=== PATIENT | male | born 1935 | race Caucasian/White ===

== ENCOUNTER → 2016-09-17 | Outpatient (CLI) | payer MEDICARE, BC | LOC: MW.CHUR 08:33 | PROVIDERS: ATTEND Urology | DX: R97.20 Elevated prostate specific antigen [PSA] (principal); R35.0 Frequency of micturition | CPT/HCPCS: 36415; 84153; G0463 ==

== ENCOUNTER 2018-06-06 11:54 | Emergency (ER) | payer MEDICARE, BC ==
[2018-06-06] MEDS ORDERED: Aspirin 81 MG Tab.Chew PO ONE (12:06)
[2018-06-06] MEDS ORDERED: Sodium Chloride 0.9% 10 ML Syringe FLUSH PRN (12:06)
[2018-06-06] MEDS ORDERED: Sodium Chloride 0.9% 2.5 ML Syringe FLUSH PRN (12:06)
--- NOTE | 2018-06-06 12:10 | EDM.PDOC ---
ED HPI GENERAL MEDICAL PROBLEM - General Chief Complaint: Chest Pain Stated Complaint: CHEST PAIN Time Seen by Provider: 06/06/18 12:01 - History of Present Illness INITIAL COMMENTS - FREE TEXT/NARRATIVE: HISTORY AND PHYSICAL: History of present illness: The patient is an 83-year-old male with no significant past medical history and no cardiac history who presents with 2 episodes of chest pain. The first occurred on Wednesday, yesterday, while he was preparing to do ice fishing. He says it was midsternal and it did not radiate and it felt like heartburn and it lasted 1 hour but went away so he continued to do his fishing. The chest pain returned today while he was shoveling snow and he again describes it as midsternal with some slight radiation to the left side of his neck and a burning -like sensation. He rates it as a 5/10. He took 2 baby aspirin prior to coming here but no other medications other than Tums. He says he has never had heartburn or cardiac problems. He has no abdominal pain no lightheadedness no dizziness and no shortness of breath. He says he had a stress test many years ago that was normal but he has not had any medical problems of late. He eats and drinks normally and has no leg pain or swelling. Review of systems: As per history of present illness and below otherwise all systems reviewed and negative. Past medical history: As per history of present illness and as reviewed below otherwise noncontributory. Surgical history: As per history of present illness and as reviewed below otherwise noncontributory. Social history: No reported history of drug or alcohol abuse. Family history: As per history of present illness and as reviewed below otherwise noncontributory. Physical exam: General: Well-developed well-nourished man who is mildly overweight and nontoxic. Vital signs are noted by me HEENT: Atraumatic, normocephalic, negative for conjunctival pallor or scleral icterus, mucous membranes moist, throat clear, neck supple, nontender, trachea midline. Lungs: Clear to auscultation, breath sounds equal bilaterally, chest nontender. Heart: S1S2, regular rate and rhythm no overt murmurs Abdomen: Soft, nondistended, nontender. Negative for masses or hepatosplenomegaly. NABS Pelvis: Stable nontender. Genitourinary: Deferred. Rectal: Deferred. Extremities: Atraumatic, negative for cords or calf pain. Neurovascular unremarkable. No pedal edema or leg asymmetry Neuro: Awake, alert, oriented. Cranial nerves II through XII unremarkable. Cerebellum unremarkable. Motor and sensory unremarkable throughout. Exam nonfocal. Diagnostics: EKG 2 CBC CMP INR troponin lipase H. pylori chest x-ray Therapeutics: IV O2 monitor, 2 baby aspirin as the patient took 2 prior to coming to the ER, nitroglycerin sublingual morphine please see below addendum for more therapeutics After 3 sublingual nitros the patient has had no relief of his chest discomfort and says it still is a 5/10. We will try a dose of morphine and repeat the EKG. When I personally went into see the patient he says that the pain is worsening and is now a 7/10 and he looks like he is in more distress. We are currently repeating EKG and I discussed with him that as his pain is not improving he will likely need to be transferred to [facility] and [place] for more Cardiologic care. He states understanding and is at bedside. Repeat EKG now stones ST segment elevation in the inferior leads with subtle reciprocal changes. I've contacted [facility] in [place] and discussed the case with Dr. August in the ER at 12:43 PM. I've also discussed the case with the vice president of advertising insulation mechanic Dr. Mendoza at 12:45 PM he says that that if flight team is available and he can be immediately transported he would like to not to give TNKase due to the patient's age and the risk factors involved. I'm currently in contact with the flight teams to see what the delays might be and will recontact him. Patient and at bedside are aware of what is occurring and the care plan that is in place. I will give him Plavix by mouth and heparin per protocol as well as some fentanyl for pain. IV fluids are on at a rate of 83 mL per hour to prevent any hypotension as episodes. I will not beta amy in light of the fact that he is an inferior wall OK. Flight team has now contacted us and will be here in 10 minutes and I have recontacted Dr. Mendoza at 12:56 PM. He would like me to not give thrombolytics and just hang a low dose IV nitro drip to help with vasospasm. We will continue to monitor this patient until transfer via flight team. We will forward all testing results to the receiving hospital as all the labs have not come back at the time of this dictation and we will also follow with a chest x-ray. critical care time excluding procedures:35min Impression: Evolving chest pain, inferior STEMI OK Definitive disposition and diagnosis as appropriate pending reevaluation and review of above. left chest Pain Score (Numeric/FACES): 4 - Related Data Allergies Allergy/AdvReac Type Severity Reaction Status Date / Time No Known Allergies Allergy Verified 06/06/18 12:00 Home Meds: Home Meds . [No Known Home Meds] 10/06/14 [History] Aspirin 81 mg PO DAILY 06/06/18 [History] ED ROS GENERAL - Review of Systems Review Of Systems: ROS reveals no pertinent complaints other than HPI. ED EXAM, GENERAL - Physical Exam Exam: See Below (See dictation) Course - Vital Signs Last Recorded V/S: Last Vital Signs Temp 35.8 C 06/06/18 12:01 Pulse 71 06/06/18 12:33 Resp 18 06/06/18 12:33 BP 128/77 06/06/18 12:33 Pulse Ox 97 06/06/18 12:33 - Orders/Labs/Meds Orders: Active Orders 24 hr Category Date Time Status Cardiac Monitoring [RC] . DIRECTED Care 06/06/18 12:06 Active EKG Documentation Completion [RC] STAT Care 06/06/18 12:06 Active EKG Documentation Completion [RC] STAT Care 06/06/18 12:34 Active Oxygen Therapy, ED [RC] ASDIRECTED Care 06/06/18 12:06 Active Pulse Oximetry [RC] ASDIRECTED Care 06/06/18 12:06 Active Chest 1V Frontal [CR] Stat Exams 06/06/18 12:06 Taken COMPREHENSIVE METABOLIC PN,CMP [CHEM] Stat Lab 06/06/18 12:03 Received HELICOBACTER PYLORI AB IGG [CHEM] Stat Lab 06/06/18 12:03 Received LIPASE [CHEM] Stat Lab 06/06/18 12:03 Received TROPONIN I [CHEM] Stat Lab 06/06/18 12:03 Received Heparin Sod,Pork In 0.45% Nacl [Heparin-1/2Ns 25,000 Med 06/06/18 12:53 Active Units/500] 25,000 unit in 500 ml IV NOW Sodium Chloride 0.9% [Normal Saline] 1,000 ml Med 06/06/18 12:15 Active IV ASDIRECTED Sodium Chloride 0.9% [Saline Flush] Med 06/06/18 12:06 Active 10 ml FLUSH ASDIRECTED PRN Sodium Chloride 0.9% [Saline Flush] Med 06/06/18 12:06 Active 2.5 ml FLUSH ASDIRECTED PRN fentaNYL [Sublimaze] Med 06/06/18 12:55 Ordered 25 mcg IVPUSH Q5M PRN Saline Lock Insert [OM.PC] Stat Oth 06/06/18 12:06 Ordered Medication Orders Sodium Chloride (Normal Saline) 1,000 mls @ 50 mls/hr IV ASDIRECTED EDE Last Admin: 06/06/18 12:17 Dose: 50 mls/hr Heparin Sodium/Sodium Chloride (Heparin-1/2ns 25,000 Units/500) 25,000 unit in 500 mls @ 18.507 mls/hr IV NOW STA; Protocol Stop: 06/07/18 15:53 Sodium Chloride (Saline Flush) 10 ml FLUSH ASDIRECTED PRN PRN Reason: Keep Vein Open Sodium Chloride (Saline Flush) 2.5 ml FLUSH ASDIRECTED PRN PRN Reason: Keep Vein Open Labs: Laboratory Tests 06/06/18 06/06/18 Range/Units 12:03 12:03 WBC 9.52 (4.0-11.0) K/uL RBC 4.66 (4.50-5.90) M/uL Hgb 14.2 (13.0-17.0) g/dL Hct 41.9 (38.0-50.0) % MCV 89.9 (80.0-98.0) fL MCH 30.5 (27.0-32.0) pg MCHC 33.9 (31.0-37.0) g/dL RDW Std Deviation 40.9 (28.0-62.0) fl RDW Coeff of Tracey 13 (11.0-15.0) % Plt Count 229 (150-400) K/uL MPV 10.50 (7.40-12.00) fL Neut % (Auto) 71.3 (48.0-80.0) % Lymph % (Auto) 21.4 (16.0-40.0) % Hawkins % (Auto) 5.6 (0.0-15.0) % Eos % (Auto) 1.5 (0.0-7.0) % Baso % (Auto) 0.2 (0.0-1.5) % Neut # (Auto) 6.8 H (1.4-5.7) K/uL Lymph # (Auto) 2.0 (0.6-2.4) K/uL Hawkins # (Auto) 0.5 (0.0-0.8) K/uL Eos # (Auto) 0.1 (0.0-0.7) K/uL Baso # (Auto) 0.0 (0.0-0.1) K/uL Nucleated RBC % 0.0 /100WBC Nucleated RBCs # 0 K/uL INR 1.02 Meds: Medications Generic Name Dose Route Start Last Admin Trade Name Freq PRN Reason Stop Dose Admin Sodium Chloride 1,000 mls @ 50 mls/hr 06/06/18 12:15 06/06/18 12:17 Normal Saline IV 50 mls/hr ASDIRECTED EDE Administration Heparin Sodium/Sodium Chloride 25,000 unit in 500 mls @ 18.507 mls/hr 12:53 Heparin-1/2ns 25,000 Units/500 IV 06/07/18 15:53 NOW STA Protocol 12 UNITS/KG/HR Sodium Chloride 10 ml 06/06/18 12:06 Saline Flush FLUSH ASDIRECTED PRN Keep Vein Open Sodium Chloride 2.5 ml 06/06/18 12:06 Saline Flush FLUSH ASDIRECTED PRN Keep Vein Open Discontinued Medications Generic Name Dose Route Start Last Admin Trade Name Freq PRN Reason Stop Dose Admin Aspirin 162 mg 06/06/18 12:06 06/06/18 12:12 Aspirin PO 06/06/18 12:07 162 mg ONETIME ONE Administration Clopidogrel Bisulfate 600 mg 06/06/18 12:50 Plavix PO 06/06/18 12:51 ONETIME ONE Heparin Sodium (Porcine) 4,000 units 06/06/18 12:52 Heparin Sodium IVPUSH 06/06/18 12:53 NOW STA Morphine Sulfate 2 mg 06/06/18 12:34 06/06/18 12:39 Morphine IVPUSH 06/06/18 12:35 2 mg ONETIME ONE Administration Nitroglycerin 0.4 mg 06/06/18 12:06 06/06/18 12:27 Nitrostat SL 0.4 mg Q5M PRN Administration Chest Pain Ondansetron HCl 4 mg 06/06/18 12:42 06/06/18 12:45 Zofran IVPUSH 06/06/18 12:43 4 mg ONETIME ONE Administration Ondansetron HCl Confirm 06/06/18 12:43 Zofran Administered 06/06/18 12:44 Dose 4 mg .ROUTE .STK-MED ONE Departure - Departure Time of Disposition: 12:59 Disposition: DC/Tfer to Acute Hospital 02 Condition: Good Clinical Impression: Acute ST elevation myocardial infarction (STEMI) Qualifiers: Involved coronary artery: unspecified coronary artery Qualified Code(s): I21.3 - ST elevation (STEMI) myocardial infarction of unspecified site - Discharge Information Referrals: PCP,None [Primary Care Provider] - Forms: ED Department Discharge - My Orders Last 24 Hours: My Active Orders 06/06/18 12:03 COMPREHENSIVE METABOLIC PN,CMP [CHEM] Stat HELICOBACTER PYLORI AB IGG [CHEM] Stat LIPASE [CHEM] Stat TROPONIN I [CHEM] Stat 06/06/18 12:06 Cardiac Monitoring [RC] . DIRECTED EKG Documentation Completion [RC] STAT Oxygen Therapy, ED [RC] ASDIRECTED Pulse Oximetry [RC] ASDIRECTED Chest 1V Frontal [CR] Stat Sodium Chloride 0.9% [Saline Flush] 10 ml FLUSH ASDIRECTED PRN Sodium Chloride 0.9% [Saline Flush] 2.5 ml FLUSH ASDIRECTED PRN Saline Lock Insert [OM.PC] Stat 06/06/18 12:15 Sodium Chloride 0.9% [Normal Saline] 1,000 ml IV ASDIRECTED 06/06/18 12:34 EKG Documentation Completion [RC] STAT 06/06/18 12:53 Heparin Sod,Pork In 0.45% Nacl [Heparin-1/2Ns 25,000 Units/500] 25,000 unit in 500 ml IV NOW 06/06/18 12:55 fentaNYL [Sublimaze] 25 mcg IVPUSH Q5M PRN - Assessment/Plan Last 24 Hours: My Active Orders 06/06/18 12:03 COMPREHENSIVE METABOLIC PN,CMP [CHEM] Stat HELICOBACTER PYLORI AB IGG [CHEM] Stat LIPASE [CHEM] Stat TROPONIN I [CHEM] Stat 06/06/18 12:06 Cardiac Monitoring [RC] . DIRECTED EKG Documentation Completion [RC] STAT Oxygen Therapy, ED [RC] ASDIRECTED Pulse Oximetry [RC] ASDIRECTED Chest 1V Frontal [CR] Stat Sodium Chloride 0.9% [Saline Flush] 10 ml FLUSH ASDIRECTED PRN Sodium Chloride 0.9% [Saline Flush] 2.5 ml FLUSH ASDIRECTED PRN Saline Lock Insert [OM.PC] Stat 06/06/18 12:15 Sodium Chloride 0.9% [Normal Saline] 1,000 ml IV ASDIRECTED 06/06/18 12:34 EKG Documentation Completion [RC] STAT 06/06/18 12:53 Heparin Sod,Pork In 0.45% Nacl [Heparin-1/2Ns 25,000 Units/500] 25,000 unit in 500 ml IV NOW 06/06/18 12:55 fentaNYL [Sublimaze] 25 mcg IVPUSH Q5M PRN
[2018-06-06] MEDS: Nitroglycerin 0.4 MG Tab.SL SL PRN ×3 (12:13→12:27)
[2018-06-06] MEDS ORDERED: Sodium Chloride 0.9% 1,000 ML IV SCH (12:15)
[2018-06-06] MEDS ORDERED: Morphine 2 MG/ML Syringe IVPUSH ONE (12:34)
[2018-06-06] MEDS ORDERED: Ondansetron 4 MG/2 ML SDV IVPUSH ONE (12:42)
[2018-06-06] MEDS ORDERED: Ondansetron 4 MG/2 ML SDV ONE (12:43)
[2018-06-06] MEDS ORDERED: Clopidogrel 75 MG Tab PO ONE (12:50)
[2018-06-06] MEDS ORDERED: Heparin Sodium 5,000 Units/ML Vial IVPUSH STA (12:52)
[2018-06-06] MEDS ORDERED: Heparin Sod,Pork In 0.45% Nacl 25,000 UNIT/500 ML IV.SOLN IV STA (12:53)
[2018-06-06] MEDS ORDERED: fentaNYL 100 MCG/2 ML SDV ONE (12:54)
[2018-06-06] MEDS ORDERED: fentaNYL 100 MCG/2 ML SDV IVPUSH PRN (12:55)
[2018-06-06] MEDS ORDERED: Nitroglycerin/D5W 25 MG/250 ML BOTTLE ONE (12:57)
--- NOTE | 2018-06-06 12:59 | CR ---
INDICATION: Chest pain and shortness of breath TECHNIQUE: Chest 1 views COMPARISON: 01/01/2009 FINDINGS: Cardiovascular and mediastinum: Heart size and vasculature are normal in caliber and appearance. Lungs and pleural spaces: Lungs are clear. No sign of infiltrate or mass. No sign of pleural effusion. No pneumothorax. Bones and soft tissues: No significant findings. IMPRESSION: No acute findings and no significant changes from the prior exam. Dictated by Chris Garcia MD @ Jun 06 2018 12:57PM Signed by Dr. Chris Garcia @ Jun 06 2018 12:58PM
[2018-06-06] MEDS ORDERED: Nitroglycerin/D5W 25 MG/250 ML BOTTLE IV SCH (13:00)
[2018-06-06] MEDS ORDERED: Pantoprazole 40 MG Vial IVPUSH ONE (13:01)
[2018-06-06 14:29] VITALS: BP 128/77
== END 2018-06-06 13:37 ==
LOC: MW.ED 11:54
DX: I21.19 ST elevation (STEMI) myocardial infarction involving other coronary artery of inferior wall (principal)
CPT/HCPCS: 36415; 71045; 80053; 83690; 84484; 85025; 85610; 86677; 93005; 96361; 96365; 96375; 99285; A9270; C9113; J1644; J2270; J2405; J3010; J3490; J7040; 99291

== ENCOUNTER 2018-06-20 09:45 | Emergency (ER) | payer MEDICARE, BC ==
[2018-06-20] MEDS ORDERED: Enalaprilat 1.25 MG/ML SDV IVPUSH ONE (09:58)
[2018-06-20] MEDS ORDERED: Sodium Chloride 0.9% 500 ML IV SCH (10:00)
--- NOTE | 2018-06-20 10:00 | EDM.PDOC ---
ED HPI GENERAL MEDICAL PROBLEM - General Chief Complaint: Cardiovascular Problem Stated Complaint: HIGH BLOOD PRESSURE Time Seen by Provider: 06/20/18 09:58 Source of Information: Reports: Patient - History of Present Illness INITIAL COMMENTS - FREE TEXT/NARRATIVE: HISTORY AND PHYSICAL: History of present illness: [Patient presents post STEMI apparently was seen last week and sent out for cardiac catheter in mind that however ended up with a two-vessel bypass has no chest pain today but has had some elevated blood pressure readings and his screed person had recommended he come in for a check He also has diabetes on insulin and has just completed prednisone today as glucoses up and area to the surgery and prednisone No fever nausea vomiting chills sweats no chest pain shortness breath no diaphoresis no headache dizziness or palpitation no bowel or urine symptoms patient is otherwise asymptomatic ] Review of systems: As per history of present illness and below otherwise all systems reviewed and negative. Past medical history: As per history of present illness and as reviewed below otherwise noncontributory. Surgical history: As per history of present illness and as reviewed below otherwise noncontributory. Social history: No reported history of drug or alcohol abuse. Family history: As per history of present illness and as reviewed below otherwise noncontributory. Physical exam: HEENT: Atraumatic, normocephalic, pupils reactive, negative for conjunctival pallor or scleral icterus, mucous membranes moist, throat clear, neck supple, nontender, trachea midline. Lungs: Clear to auscultation, breath sounds equal bilaterally, chest nontender. Surgical incision noted on chest clean dry intact no redness warmth or pus drainage Heart: S1S2, regular, negative for clicks, rubs, or JVD. Abdomen: Soft, nondistended, nontender. Negative for masses or hepatosplenomegaly. Negative for costovertebral tenderness. Pelvis: Stable nontender. Genitourinary: Deferred. Rectal: Deferred. Extremities: Atraumatic, negative for cords or calf pain. Neurovascular unremarkable. Neuro: Awake, alert, oriented. Cranial nerves II through XII unremarkable. Cerebellum unremarkable. Motor and sensory unremarkable throughout. Exam nonfocal. Diagnostics: [CBC CMP UA troponin INR EKG ] Therapeutics: [Normal saline Vasotec 0.625 IV Regular insulin 5 units IV 2 ] Impression: [Hypertension-resolved Hyperglycemia-resolved Recent STEMI with CABG Slightly elevated troponin secondary to above Chronic history of baseline ] Definitive disposition and diagnosis as appropriate pending reevaluation and review of above. - Related Data Allergies Allergy/AdvReac Type Severity Reaction Status Date / Time No Known Allergies Allergy Verified 06/20/18 09:51 Home Meds: Home Meds . [No Known Home Meds] 10/06/14 [History] Aspirin 81 mg PO DAILY 06/06/18 [History] Past Medical History HEENT History: Reports: None Cardiovascular History: Reports: [place] Respiratory History: Reports: None Gastrointestinal History: Reports: None Genitourinary History: Reports: None Musculoskeletal History: Reports: None Neurological History: Reports: TIA Psychiatric History: Reports: None Endocrine/Metabolic History: Reports: None Hematologic History: Reports: None Immunologic History: Reports: None Oncologic (Cancer) History: Reports: None Dermatologic History: Reports: None - Infectious Disease History Infectious Disease History: Reports: Chicken Pox, Mumps Other Infectious Disease History: childhood - Past Surgical History Head Surgeries/Procedures: Reports: None HEENT Surgical History: Reports: None 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 Respiratory Surgical History: Reports: None GI Surgical History: Reports: Appendectomy Male Surgical History: Reports: None Endocrine Surgical History: Reports: None Neurological Surgical History: Reports: None Musculoskeletal Surgical History: Reports: None Oncologic Surgical History: Reports: None Dermatological Surgical History: Reports: None Social & Family History - Family History Family Medical History: Noncontributory - Tobacco Use Smoking Status *Q: Former Smoker Years of Tobacco use: 30 Used Tobacco, but Quit: Yes Month/Year Tobacco Last Used: 1979 - Caffeine Use Caffeine Use: Reports: None - Recreational Drug Use Recreational Drug Use: No ED ROS GENERAL - Review of Systems Review Of Systems: See Below ED EXAM, GENERAL - Physical Exam Exam: See Below Course - Vital Signs Last Recorded V/S: Last Vital Signs Temp 96.9 F 06/20/18 09:51 Pulse 76 06/20/18 09:51 Resp 20 06/20/18 09:51 BP 157/72 H 06/20/18 10:15 Pulse Ox 96 06/20/18 09:51 - Orders/Labs/Meds Orders: Active Orders 24 hr Category Date Time Status EKG 12 Lead [EKG Documentation Completion] [RC] STAT Care 06/20/18 10:27 Active UA W/MICROSCOPIC [URIN] Stat Lab 06/20/18 11:41 Results Sodium Chloride 0.9% [Normal Saline] 500 ml Med 06/20/18 10:00 Active IV STAT Medication Orders Sodium Chloride (Normal Saline) 500 mls @ 999 mls/hr IV STAT EDE Last Admin: 06/20/18 10:15 Dose: 999 mls/hr Labs: Laboratory Tests 06/20/18 06/20/18 06/20/18 Range/Units 09:58 09:58 09:58 WBC 15.06 H (4.0-11.0) K/uL RBC 3.48 L (4.50-5.90) M/uL Hgb 10.3 L (13.0-17.0) g/dL Hct 31.7 L (38.0-50.0) % MCV 91.1 (80.0-98.0) fL MCH 29.6 (27.0-32.0) pg MCHC 32.5 (31.0-37.0) g/dL RDW Std Deviation 45.5 (28.0-62.0) fl RDW Coeff of Tracey 14 (11.0-15.0) % Plt Count 630 H (150-400) K/uL MPV 9.00 (7.40-12.00) fL Neut % (Auto) 61.5 (48.0-80.0) % Lymph % (Auto) 27.9 (16.0-40.0) % [place] % (Auto) 9.0 (0.0-15.0) % Eos % (Auto) 1.5 (0.0-7.0) % Baso % (Auto) 0.1 (0.0-1.5) % Neut # (Auto) 9.3 H (1.4-5.7) K/uL Lymph # (Auto) 4.2 H (0.6-2.4) K/uL [place] # (Auto) 1.4 H (0.0-0.8) K/uL Eos # (Auto) 0.2 (0.0-0.7) K/uL Baso # (Auto) 0.0 (0.0-0.1) K/uL Nucleated RBC % 0.0 /100WBC Nucleated RBCs # 0 K/uL INR 1.05 Sodium 134 L (136-148) mmol/L Potassium 3.4 L (3.5-5.1) mmol/L Chloride 99 (98-107) mmol/L Carbon Dioxide 26.7 (21.0-32.0) mmol/L BUN 19 H (7.0-18.0) mg/dL Creatinine 1.3 (0.8-1.3) mg/dL Est Cr Clr Drug Dosing TNP Estimated GFR (MDRD) 53.0 ml/min Glucose 331 H (74-106) mg/dL POC Glucose (60-110) mg/dL Calcium 9.0 (8.5-10.1) mg/dL Total Bilirubin 0.7 (0.2-1.0) mg/dL AST 15 (15-37) IU/L ALT 21 (14-63) IU/L Alkaline Phosphatase 90 (46-116) U/L Troponin I 0.076 H* (0.000-0.056) ng/mL Total Protein 6.9 (6.4-8.2) g/dL Albumin 3.0 L (3.4-5.0) g/dL Globulin 3.9 (2.6-4.0) g/dL Albumin/Globulin Ratio 0.8 L (0.9-1.6) Urine Color Urine Appearance Urine pH (5.0-8.0) Ur Specific [place] (1.001-1.035) Urine Protein (NEGATIVE) mg/dL Urine Glucose (UA) (NEGATIVE) mg/dL Urine Ketones (NEGATIVE) mg/dL Urine Occult Blood (NEGATIVE) Urine Nitrite (NEGATIVE) Urine Bilirubin (NEGATIVE) Urine Urobilinogen (<2.0) EU/dL Ur Leukocyte Esterase (NEGATIVE) 06/20/18 06/20/18 06/20/18 Range/Units 10:03 10:43 11:41 WBC (4.0-11.0) K/uL RBC (4.50-5.90) M/uL Hgb (13.0-17.0) g/dL Hct (38.0-50.0) % MCV (80.0-98.0) fL MCH (27.0-32.0) pg MCHC (31.0-37.0) g/dL RDW Std Deviation (28.0-62.0) fl RDW Coeff of Tracey (11.0-15.0) % Plt Count (150-400) K/uL MPV (7.40-12.00) fL Neut % (Auto) (48.0-80.0) % Lymph % (Auto) (16.0-40.0) % [place] % (Auto) (0.0-15.0) % Eos % (Auto) (0.0-7.0) % Baso % (Auto) (0.0-1.5) % Neut # (Auto) (1.4-5.7) K/uL Lymph # (Auto) (0.6-2.4) K/uL [place] # (Auto) (0.0-0.8) K/uL Eos # (Auto) (0.0-0.7) K/uL Baso # (Auto) (0.0-0.1) K/uL Nucleated RBC % /100WBC Nucleated RBCs # K/uL INR Sodium (136-148) mmol/L Potassium (3.5-5.1) mmol/L Chloride (98-107) mmol/L Carbon Dioxide (21.0-32.0) mmol/L BUN (7.0-18.0) mg/dL Creatinine (0.8-1.3) mg/dL Est Cr Clr Drug Dosing Estimated GFR (MDRD) ml/min Glucose (74-106) mg/dL POC Glucose 358 H 315 H (60-110) mg/dL Calcium (8.5-10.1) mg/dL Total Bilirubin (0.2-1.0) mg/dL AST (15-37) IU/L ALT (14-63) IU/L Alkaline Phosphatase (46-116) U/L Troponin I (0.000-0.056) ng/mL Total Protein (6.4-8.2) g/dL Albumin (3.4-5.0) g/dL Globulin (2.6-4.0) g/dL Albumin/Globulin Ratio (0.9-1.6) Urine Color YELLOW Urine Appearance CLEAR Urine pH 5.5 (5.0-8.0) Ur Specific [place] 1.020 (1.001-1.035) Urine Protein NEGATIVE (NEGATIVE) mg/dL Urine Glucose (UA) >=1000 (NEGATIVE) mg/dL Urine Ketones NEGATIVE (NEGATIVE) mg/dL Urine Occult Blood MODERATE H (NEGATIVE) Urine Nitrite NEGATIVE (NEGATIVE) Urine Bilirubin NEGATIVE (NEGATIVE) Urine Urobilinogen 0.2 (<2.0) EU/dL Ur Leukocyte Esterase NEGATIVE (NEGATIVE) 06/20/18 Range/Units 11:43 WBC (4.0-11.0) K/uL RBC (4.50-5.90) M/uL Hgb (13.0-17.0) g/dL Hct (38.0-50.0) % MCV (80.0-98.0) fL MCH (27.0-32.0) pg MCHC (31.0-37.0) g/dL RDW Std Deviation (28.0-62.0) fl RDW Coeff of Tracey (11.0-15.0) % Plt Count (150-400) K/uL MPV (7.40-12.00) fL Neut % (Auto) (48.0-80.0) % Lymph % (Auto) (16.0-40.0) % [place] % (Auto) (0.0-15.0) % Eos % (Auto) (0.0-7.0) % Baso % (Auto) (0.0-1.5) % Neut # (Auto) (1.4-5.7) K/uL Lymph # (Auto) (0.6-2.4) K/uL [place] # (Auto) (0.0-0.8) K/uL Eos # (Auto) (0.0-0.7) K/uL Baso # (Auto) (0.0-0.1) K/uL Nucleated RBC % /100WBC Nucleated RBCs # K/uL INR Sodium (136-148) mmol/L Potassium (3.5-5.1) mmol/L Chloride (98-107) mmol/L Carbon Dioxide (21.0-32.0) mmol/L BUN (7.0-18.0) mg/dL Creatinine (0.8-1.3) mg/dL Est Cr Clr Drug Dosing Estimated GFR (MDRD) ml/min Glucose (74-106) mg/dL POC Glucose 151 H (60-110) mg/dL Calcium (8.5-10.1) mg/dL Total Bilirubin (0.2-1.0) mg/dL AST (15-37) IU/L ALT (14-63) IU/L Alkaline Phosphatase (46-116) U/L Troponin I (0.000-0.056) ng/mL Total Protein (6.4-8.2) g/dL Albumin (3.4-5.0) g/dL Globulin (2.6-4.0) g/dL Albumin/Globulin Ratio (0.9-1.6) Urine Color Urine Appearance Urine pH (5.0-8.0) Ur Specific [place]es (1.001-1.035) Urine Protein (NEGATIVE) mg/dL Urine Glucose (UA) (NEGATIVE) mg/dL Urine Ketones (NEGATIVE) mg/dL Urine Occult Blood (NEGATIVE) Urine Nitrite (NEGATIVE) Urine Bilirubin (NEGATIVE) Urine Urobilinogen (<2.0) EU/dL Ur Leukocyte Esterase (NEGATIVE) Meds: Medications Generic Name Dose Route Start Last Admin Trade Name Freq PRN Reason Stop Dose Admin Sodium Chloride 500 mls @ 999 mls/hr 06/20/18 10:00 06/20/18 10:15 Normal Saline IV 999 mls/hr STAT EDE Administration Discontinued Medications Generic Name Dose Route Start Last Admin Trade Name Freq PRN Reason Stop Dose Admin Enalaprilat 1.25 mg 06/20/18 09:58 06/20/18 10:15 Vasotec Iv IVPUSH 06/20/18 09:59 1.25 mg ONETIME ONE Administration Insulin Human Regular 5 unit 06/20/18 10:09 06/20/18 10:21 Novolin R IVPUSH 06/20/18 10:10 5 units ONETIME ONE Administration Protocol Insulin Human Regular 5 unit 06/20/18 11:00 06/20/18 11:12 Novolin R IVPUSH 06/20/18 11:01 5 units ONETIME ONE Administration Protocol Departure - Departure Time of Disposition: 11:58 Disposition: Home, Self-Care 01 Condition: Good Clinical Impression: Hypertension, Hyperglycemia Referrals: PCP,Not In Area [Primary Care Provider] - Forms: ED Department Discharge Additional Instructions: The following information is given to patients seen in the emergency department who are being discharged to home. This information is to outline your options for follow-up care. We provide all patients seen in our emergency department with a follow-up referral. The need for follow-up, as well as the timing and circumstances, are variable depending upon the specifics of your emergency department visit. If you don't have a primary care physician on staff, we will provide you with a referral. We always advise you to contact your personal physician following an emergency department visit to inform them of the circumstance of the visit and for follow-up with them and/or the need for any referrals to a consulting specialist. The emergency department will also refer you to a specialist when appropriate. This referral assures that you have the opportunity for follow-up care with a specialist. All of these measure are taken in an effort to provide you with optimal care, which includes your follow-up. Under all circumstances we always encourage you to contact your private physician who remains a resource for coordinating your care. When calling for follow-up care, please make the office aware that this follow-up is from your recent emergency room visit. If for any reason you are refused follow-up, please contact the [facility] emergency department at and asked to speak to the emergency department charge nurse. - My Orders Last 24 Hours: My Active Orders 06/20/18 10:00 Sodium Chloride 0.9% [Normal Saline] 500 ml IV STAT 06/20/18 10:27 EKG 12 Lead [EKG Documentation Completion] [RC] STAT 06/20/18 11:41 UA W/MICROSCOPIC [URIN] Stat - Assessment/Plan Last 24 Hours: My Active Orders 06/20/18 10:00 Sodium Chloride 0.9% [Normal Saline] 500 ml IV STAT 06/20/18 10:27 EKG 12 Lead [EKG Documentation Completion] [RC] STAT 06/20/18 11:41 UA W/MICROSCOPIC [URIN] Stat
[2018-06-20] MEDS ORDERED: Insulin Regular, Human 100 Units/ML 10 ML Vial IVPUSH ONE ×2 (10:09→11:00)
[2018-06-20 10:38] LABS: CHLORIDE,CL 99 mmol/L (98-107); SODIUM,NA 134 mmol/L (136-148)
[2018-06-20 12:14] VITALS: BP 140/71
== END 2018-06-20 12:13 | disposition home or self-care (01) ==
LOC: MW.ED 09:45
DX: I10 Essential (primary) hypertension (principal); E11.65 Type 2 diabetes mellitus with hyperglycemia; I25.2 Old myocardial infarction; Z95.1 Presence of aortocoronary bypass graft; Z79.82 Long term (current) use of aspirin; Z86.73 Personal history of transient ischemic attack (TIA), and cerebral infarction without residual deficits; Z87.891 Personal history of nicotine dependence
CPT/HCPCS: 36415; 80053; 81001; 82962; 84484; 85025; 85610; 93005; 96361; 96374; 99284; J7040; J1815-GY

== ENCOUNTER 2018-06-26 01:58 | Emergency (ER) | payer MEDICARE, BC ==
[2018-06-26] MEDS ORDERED: 50% Dextrose in Water 50 ML Syringe ONE (02:13)
[2018-06-26] MEDS ORDERED: 50% Dextrose in Water 50 ML Syringe IVPUSH STA (02:20)
[2018-06-26 02:44] LABS: CHLORIDE,CL 99 mmol/L (98-107); SODIUM,NA 134 mmol/L (136-148)
--- NOTE | 2018-06-26 02:56 | CT ---
INDICATION: Altered level of awareness TECHNIQUE: Head CT without contrast. COMPARISON: None FINDINGS: CSF spaces: Within normal limits for age. Brain parenchyma: There are nonspecific low attenuation white matter changes consistent with chronic microvascular disease. No sign of mass, hemorrhage, or midline shift. Skull base and calvarium: Bubbly secretions in the right maxillary sinus. The mastoid air cells demonstrate no acute or significant findings. The visualized orbits are grossly unremarkable. No skull fractures. There is intracranial atherosclerosis. IMPRESSION: 1. No acute findings. 2. Nonspecific white matter disease, typical of chronic microvascular disease. 3. Right maxillary sinus disease Please note that all CT scans at this facility use dose modulation, iterative reconstruction, and/or weight-based dosing when appropriate to reduce radiation dose to as low as reasonably achievable. Dictated by Niurka Villela MD @ Jun 26 2018 2:53AM Signed by Dr. Niurka Villela @ Jun 26 2018 2:55AM
--- NOTE | 2018-06-26 04:00 | EDM.PDOC ---
ED HPI GENERAL MEDICAL PROBLEM - General Chief Complaint: General Stated Complaint: HEART ISSUES- RECENT HEART SURGERY Time Seen by Provider: 06/26/18 03:57 - History of Present Illness INITIAL COMMENTS - FREE TEXT/NARRATIVE: HISTORY AND PHYSICAL: History of present illness: Patient is an 83-year-old white male with recent adjustment in his insulin presents with a concern of diaphoresis and somnolence noted to have a blood sugar 33 on arrival is given 1 amp of D50 with resolution has no complaints. Review of systems: As per history of present illness and below otherwise all systems reviewed and negative. Past medical history: As per history of present illness and as reviewed below otherwise noncontributory. Surgical history: As per history of present illness and as reviewed below otherwise noncontributory. Social history: No reported history of drug or alcohol abuse. Family history: As per history of present illness and as reviewed below otherwise noncontributory. Physical exam: HEENT: Atraumatic, normocephalic, pupils reactive, negative for conjunctival pallor or scleral icterus, mucous membranes moist, throat clear, neck supple, nontender, trachea midline. Lungs: Clear to auscultation, breath sounds equal bilaterally, chest nontender. Heart: S1S2, regular, negative for clicks, rubs, or JVD. Abdomen: Soft, nondistended, nontender. Negative for masses or hepatosplenomegaly. Negative for costovertebral tenderness. Pelvis: Stable nontender. Genitourinary: Deferred. Rectal: Deferred. Extremities: Atraumatic, negative for cords or calf pain. Neurovascular unremarkable. Neuro: Awake, alert, oriented. Cranial nerves II through XII unremarkable. Cerebellum unremarkable. Motor and sensory unremarkable throughout. Exam nonfocal. Diagnostics: CBC CMP troponin PT/INR chest x-ray EKG Therapeutics: IV O2 monitor 1 amp D50 Impression: #1 hypoglycemic episode insulin reaction #2 history of diabetes Definitive disposition and diagnosis as appropriate pending reevaluation and review of above. - Related Data Allergies Allergy/AdvReac Type Severity Reaction Status Date / Time No Known Allergies Allergy Verified 06/26/18 02:07 Home Meds: Home Meds Aspirin 81 mg PO DAILY 06/06/18 [History] Acetaminophen [Tylenol Extra Strength] 1,000 mg PO Q6HR PRN 06/26/18 [History] Carvedilol 2 tab PO BID 06/26/18 [History] Ferrous Gluconate 1 tab PO DAILY 06/26/18 [History] Folic Acid 1 tab PO DAILY 06/26/18 [History] Insulin Aspart [NovoLOG] 5 units SQ TID 06/26/18 [History] Insulin Detemir [Levemir Flextouch] 30 units SQ BID 06/26/18 [History] Lisinopril 1 tab PO DAILY 06/26/18 [History] atorvaSTATin [Lipitor] 1 tab PO BEDTIME 06/26/18 [History] Past Medical History HEENT History: Reports: None Cardiovascular History: Reports: Bypass, Hypertension, [place] Respiratory History: Reports: None Gastrointestinal History: Reports: None Genitourinary History: Reports: None Musculoskeletal History: Reports: None Neurological History: Reports: TIA Psychiatric History: Reports: None Endocrine/Metabolic History: Reports: Diabetes, Type II Hematologic History: Reports: None Immunologic History: Reports: None Oncologic (Cancer) History: Reports: None Dermatologic History: Reports: None - Infectious Disease History Infectious Disease History: Reports: Chicken Pox, Mumps Other Infectious Disease History: childhood - Past Surgical History Head Surgeries/Procedures: Reports: None HEENT Surgical History: Reports: None 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 Respiratory Surgical History: Reports: None GI Surgical History: Reports: Appendectomy Male Surgical History: Reports: None Endocrine Surgical History: Reports: None Neurological Surgical History: Reports: None Musculoskeletal Surgical History: Reports: None Oncologic Surgical History: Reports: None Dermatological Surgical History: Reports: None Social & Family History - Family History Family Medical History: Noncontributory - Tobacco Use Smoking Status *Q: Never Smoker - Caffeine Use Caffeine Use: Reports: None - Recreational Drug Use Recreational Drug Use: No ED ROS GENERAL - Review of Systems Review Of Systems: ROS reveals no pertinent complaints other than HPI. ED EXAM, GENERAL - Physical Exam Exam: See Below (dictation) Course - Vital Signs Last Recorded V/S: Last Vital Signs Temp 35.5 C 06/26/18 01:59 Pulse 61 06/26/18 02:25 Resp 18 06/26/18 02:25 BP 114/63 06/26/18 02:25 Pulse Ox 96 06/26/18 02:25 - Orders/Labs/Meds Orders: Active Orders 24 hr Category Date Time Status Cardiac Monitoring [RC] . DIRECTED Care 06/26/18 02:08 Active EKG Documentation Completion [RC] STAT Care 06/26/18 02:08 Active Chest 1V Frontal [CR] Stat Exams 06/26/18 02:08 Taken Labs: Laboratory Tests 06/26/18 06/26/18 06/26/18 Range/Units 02:05 02:05 02:05 WBC 14.21 H (4.0-11.0) K/uL RBC 3.99 L (4.50-5.90) M/uL Hgb 11.9 L (13.0-17.0) g/dL Hct 35.7 L (38.0-50.0) % MCV 89.5 (80.0-98.0) fL MCH 29.8 (27.0-32.0) pg MCHC 33.3 (31.0-37.0) g/dL RDW Std Deviation 45.7 (28.0-62.0) fl RDW Coeff of Tracey 14 (11.0-15.0) % Plt Count 451 H (150-400) K/uL MPV 9.90 (7.40-12.00) fL Neut % (Auto) 57.5 (48.0-80.0) % Lymph % (Auto) 24.1 (16.0-40.0) % [place] % (Auto) 15.0 (0.0-15.0) % Eos % (Auto) 3.3 (0.0-7.0) % Baso % (Auto) 0.1 (0.0-1.5) % Neut # (Auto) 8.2 H (1.4-5.7) K/uL Lymph # (Auto) 3.4 H (0.6-2.4) K/uL [place] # (Auto) 2.1 H (0.0-0.8) K/uL Eos # (Auto) 0.5 (0.0-0.7) K/uL Baso # (Auto) 0.0 (0.0-0.1) K/uL Nucleated RBC % 0.0 /100WBC Nucleated RBCs # 0 K/uL APTT 29.6 (18.6-31.3) SEC Sodium 134 L (136-148) mmol/L Potassium 3.3 L (3.5-5.1) mmol/L Chloride 99 (98-107) mmol/L Carbon Dioxide 25.8 (21.0-32.0) mmol/L BUN 27 H (7.0-18.0) mg/dL Creatinine 1.3 (0.8-1.3) mg/dL Est Cr Clr Drug Dosing TNP Estimated GFR (MDRD) 53.0 ml/min Glucose 40 L (74-106) mg/dL Calcium 9.7 (8.5-10.1) mg/dL Troponin I < 0.050 (0.000-0.056) ng/mL Meds: Medications Discontinued Medications Generic Name Dose Route Start Last Admin Trade Name Frehemal PRN Reason Stop Dose Admin Dextrose/Water Confirm 06/26/18 02:13 06/26/18 02:23 Dextrose 50% In Water Administered 06/26/18 02:14 Not Given Dose 50 ml .ROUTE .STK-MED ONE Dextrose/Water 50 ml 06/26/18 02:20 06/26/18 02:23 Dextrose 50% In Water IVPUSH 06/26/18 02:21 50 ml ONETIME STA Administration Departure - Departure Time of Disposition: 03:59 Disposition: Home, Self-Care 01 Condition: Good Clinical Impression: Insulin reaction - Discharge Information Referrals: Prabhjot Hobbs MD [Primary Care Provider] - Additional Instructions: The following information is given to patients seen in the emergency department who are being discharged to home. This information is to outline your options for follow-up care. We provide all patients seen in our emergency department with a follow-up referral. The need for follow-up, as well as the timing and circumstances, are variable depending upon the specifics of your emergency department visit. If you don't have a primary care physician on staff, we will provide you with a referral. We always advise you to contact your personal physician following an emergency department visit to inform them of the circumstance of the visit and for follow-up with them and/or the need for any referrals to a consulting specialist. The emergency department will also refer you to a specialist when appropriate. This referral assures that you have the opportunity for followup care with a specialist. All of these measure are taken in an effort to provide you with optimal care, which includes your followup. Under all circumstances we always encourage you to contact your private physician who remains a resource for coordinating your care. When calling for followup care, please make the office aware that this follow-up is from your recent emergency room visit. If for any reason you are refused follow-up, please contact the [facility] emergency department at and asked to speak to the emergency department charge nurse. Jairo-Ramin 4 times a day as directed contact physician in a.m. regarding medication adjustment he regularly push fluids and return as needed as discussed - My Orders Last 24 Hours: My Active Orders 06/26/18 02:08 Cardiac Monitoring [RC] . DIRECTED EKG Documentation Completion [RC] STAT Chest 1V Frontal [CR] Stat - Assessment/Plan Last 24 Hours: My Active Orders 06/26/18 02:08 Cardiac Monitoring [RC] . DIRECTED EKG Documentation Completion [RC] STAT Chest 1V Frontal [CR] Stat
[2018-06-26 04:28] VITALS: BP 122/71
--- NOTE | 2018-06-27 11:50 | CR ---
EXAMINATION: Portable chest radiograph. HISTORY: Chest pain. FINDINGS: The trachea is midline. The cardiomediastinal silhouette is within normal limits. No pulmonary infiltrates, or pneumothorax. Likely minimal bilateral pleural effusions. Median sternotomy wires are noted. Mild aortic calcifications. Osseous structures appear unremarkable. IMPRESSION: 1. Likely minimal bilateral pleural effusions otherwise no acute cardiopulmonary findings.
== END 2018-06-26 04:20 | disposition home or self-care (01) ==
LOC: MW.ED 01:58
DX: R61 Generalized hyperhidrosis (principal); T38.3X5A Adverse effect of insulin and oral hypoglycemic [antidiabetic] drugs, initial encounter; E11.9 Type 2 diabetes mellitus without complications; I25.2 Old myocardial infarction; Z79.4 Long term (current) use of insulin; Z79.82 Long term (current) use of aspirin; Z79.899 Other long term (current) drug therapy; I10 Essential (primary) hypertension
CPT/HCPCS: 36415; 70450; 71045; 80048; 84484; 85025; 85730; 93005; 96374; 99284; J7060

== ENCOUNTER 2018-11-19 12:15 | Emergency (ER) | payer MEDICARE, BC ==
[2018-11-19] MEDS ORDERED: Ketorolac 60 MG/2 ML SDV IM ONE (12:32)
--- NOTE | 2018-11-19 12:34 | EDM.PDOC ---
ED HPI GENERAL MEDICAL PROBLEM - General Chief Complaint: Lower Extremity Injury/Pain Stated Complaint: LEGH PAIN Time Seen by Provider: 11/19/18 12:24 Source of Information: Reports: Patient History Limitations: Reports: No Limitations - History of Present Illness INITIAL COMMENTS - FREE TEXT/NARRATIVE: HISTORY AND PHYSICAL: History of present illness: Patient is an 83-year-old male who presents to the emergency room with complaints of left posterior hip pain that radiates down the thigh and intermittently into the foot. He states he does have a history of sciatica and had similar symptoms on the right side several months ago. He has been alternating heat and ice. States the heat may the pain worse, along with laying down at night time. Did try some ice which did seem to help alleviate some of his discomfort. He denies any injury, trauma or falls. He denies any weakness, numbness or tingling of the affected extremity. Patient denies any fever, chills, headache, change in vision, syncope or near syncope. Denies any chest pain, back pain, shortness of breath or cough. Denies any abdominal pain, nausea, vomiting, diarrhea, constipation or dysuria. Has not noted any blood in urine or stool. Patient has been eating and drinking appropriately. Review of systems: As per history of present illness and below otherwise all systems reviewed and negative. Past medical history: As per history of present illness and as reviewed below otherwise noncontributory. Surgical history: As per history of present illness and as reviewed below otherwise noncontributory. Social history: See social history for further information Family history: As per history of present illness and as reviewed below otherwise noncontributory. Physical exam: General: Well-developed and well-nourished 83-year-old male. Alert and oriented. Nontoxic appearing and in no acute distress. HEENT: Atraumatic, normocephalic, pupils equal and reactive bilaterally, negative for conjunctival pallor or scleral icterus, mucous membranes moist, trachea midline. No drooling or trismus noted. No meningeal signs. No hot potato voice noted. Lungs: Clear to auscultation, breath sounds equal bilaterally, chest nontender. Heart: S1S2, regular rate and rhythm without overt murmur Abdomen: Soft, nondistended, nontender. Negative for masses or hepatosplenomegaly. Negative for costovertebral tenderness. Pelvis: Stable nontender. Genitourinary: Deferred. Rectal: Deferred. Skin: Intact, warm, dry. No soft tissue swelling or erythema. No lesions or rashes noted. Extremities: Atraumatic, moves all extremities per self without difficulty or deficits, negative for cords or calf pain. No pinpoint bony tenderness with palpation. Has some muscular tenderness to the distal gluteal into his hamstring. Neurovascular unremarkable. Neuro: Awake, alert, oriented. Cranial nerves II through XII unremarkable. Cerebellum unremarkable. Motor and sensory unremarkable throughout. Exam nonfocal. Notes: Patient is agreeable for an x-ray for baseline. We'll give Norflex and Toradol IM as this does sound muscular in nature. Vital signs are stable and have been reviewed by me. Two views of the left hip are provided. 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 No findings for fracture or dislocation. Supportive care measures were reviewed and discussed. Voices understanding and is agreeable to plan of care. Denies any further questions or concerns at this time. Diagnostics: Left hip X-ray Therapeutics: Toradol IM Norflex Prescription: Diclofenac Flexeril Impression: Sciatica, left Plan: 1. The medication he received as an injection today does cause drowsiness so do not drive for the remaining day 2. When resting please lay on a flat firm surface. Limit your immobility to prevent muscle stiffness, get up to ambulate/move around/gentle stretching multiple times throughout the day. May alternate heat and ice to the painful areas 3. Tylenol as needed for back pain. Otherwise take the prescribed Flexeril and diclofenac as directed. Diclofenac is an anti-inflammatory so do not take any additional NSAIDs with this medication, such as ibuprofen or Aleve. Flexeril as a muscle relaxant, this medication may cause drowsiness a do not take it will driving her needing to be functioning outside of the house. 4. Please follow-up with your primary care provider as we discussed. Return to the ED as needed and as discussed. Definitive disposition and diagnosis as appropriate pending reevaluation and review of above. Left Leg Pain Score (Numeric/FACES): 6 - Related Data Allergies Allergy/AdvReac Type Severity Reaction Status Date / Time No Known Allergies Allergy Verified 11/19/18 12:24 Home Meds: Home Meds Aspirin 81 mg PO DAILY 06/06/18 [History] Carvedilol 2 tab PO BID 06/26/18 [History] Insulin Aspart [NovoLOG] 5 units SQ TID 06/26/18 [History] Insulin Detemir [Levemir Flextouch] 30 units SQ BID 06/26/18 [History] Lisinopril 1 tab PO DAILY 06/26/18 [History] atorvaSTATin [Lipitor] 1 tab PO BEDTIME 06/26/18 [History] Cyclobenzaprine [Flexeril] 1 dose PO TID PRN #20 tab 11/19/18 [Rx] Diclofenac Sodium [Voltaren] 50 mg PO TID PRN #30 tab.ec 11/19/18 [Rx] Nitroglycerin [Nitrostat] 0.4 mg SL PRN 11/19/18 [History] Past Medical History HEENT History: Reports: None Cardiovascular History: Reports: Bypass, Hypertension, PA Respiratory History: Reports: None Gastrointestinal History: Reports: None Genitourinary History: Reports: None Musculoskeletal History: Reports: None Neurological History: Reports: TIA Psychiatric History: Reports: None Endocrine/Metabolic History: Reports: Diabetes, Type II Hematologic History: Reports: None Immunologic History: Reports: None Oncologic (Cancer) History: Reports: None Dermatologic History: Reports: None - Infectious Disease History Infectious Disease History: Reports: Chicken Pox, Mumps Other Infectious Disease History: childhood - Past Surgical History Head Surgeries/Procedures: Reports: None HEENT Surgical History: Reports: None 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, Coronary Artery Bypass Respiratory Surgical History: Reports: None GI Surgical History: Reports: Appendectomy Male Surgical History: Reports: None Endocrine Surgical History: Reports: None Neurological Surgical History: Reports: None Musculoskeletal Surgical History: Reports: None Oncologic Surgical History: Reports: None Dermatological Surgical History: Reports: None Social & Family History - Family History Family Medical History: Noncontributory - Tobacco Use Smoking Status *Q: Never Smoker - Caffeine Use Caffeine Use: Reports: None - Recreational Drug Use Recreational Drug Use: No Review of Systems - Review of Systems Review Of Systems: ROS reveals no pertinent complaints other than HPI. ED EXAM, GENERAL - Physical Exam Exam: See Below (See dictation) Course - Vital Signs Last Recorded V/S: Last Vital Signs Temp 96.1 F 11/19/18 12:22 Pulse 65 11/19/18 12:22 Resp 18 11/19/18 12:22 BP 154/63 H 11/19/18 12:22 Pulse Ox 99 11/19/18 12:22 - Orders/Labs/Meds Orders: Active Orders 24 hr Category Date Time Status Hip Min 2V or 3V Lt [CR] Stat Exams 11/19/18 12:33 Taken Meds: Medications Discontinued Medications Generic Name Dose Route Start Last Admin Trade Name Jaydon PRN Reason Stop Dose Admin Ketorolac Tromethamine 60 mg 11/19/18 12:32 11/19/18 12:52 Toradol IM 11/19/18 12:33 60 mg ONETIME ONE Administration Orphenadrine Citrate 60 mg 11/19/18 12:32 11/19/18 12:55 Norflex IM 11/19/18 12:33 60 mg NOW STA Administration Departure - Departure Time of Disposition: 13:02 Disposition: Home, Self-Care 01 Clinical Impression: Sciatica Qualifiers: Laterality: left Qualified Code(s): M54.32 - Sciatica, left side - Discharge Information Prescriptions: Cyclobenzaprine [Flexeril] 1 dose PO TID PRN #20 tab PRN Reason: Muscle Spasm Diclofenac Sodium [Voltaren] 50 mg PO TID PRN #30 tab.ec PRN Reason: Pain Instructions: Sciatica, [id number] Referrals: PCP,Unknown [Primary Care Provider] - Forms: ED Department Discharge Additional Instructions: The following information is given to patients seen in the emergency department who are being discharged to home. This information is to outline your options for follow-up care. We provide all patients seen in our emergency department with a follow-up referral. The need for follow-up, as well as the timing and circumstances, are variable depending upon the specifics of your emergency department visit. If you don't have a primary care physician on staff, we will provide you with a referral. We always advise you to contact your personal physician following an emergency department visit to inform them of the circumstance of the visit and for follow-up with them and/or the need for any referrals to a consulting specialist. The emergency department will also refer you to a specialist when appropriate. This referral assures that you have the opportunity for follow-up care with a specialist. All of these measure are taken in an effort to provide you with optimal care, which includes your follow-up. Under all circumstances we always encourage you to contact your private physician who remains a resource for coordinating your care. When calling for follow-up care, please make the office aware that this follow-up is from your recent emergency room visit. If for any reason you are refused follow-up, please contact the [facility] Emergency Department at and asked to speak to the emergency department charge nurse. [facility] [address] [place] [id number] [facility] [address] [place] [id number] 1. The medication he received as an injection today does cause drowsiness so do not drive for the remaining day 2. When resting please lay on a flat firm surface. Limit your immobility to prevent muscle stiffness, get up to ambulate/move around/gentle stretching multiple times throughout the day. May alternate heat and ice to the painful areas 3. Tylenol as needed for back pain. Otherwise take the prescribed Flexeril and diclofenac as directed. Diclofenac is an anti-inflammatory so do not take any additional NSAIDs with this medication, such as ibuprofen or Aleve. Flexeril as a muscle relaxant, this medication may cause drowsiness a do not take it will driving her needing to be functioning outside of the house. 4. Please follow-up with your primary care provider as we discussed. Return to the ED as needed and as discussed. - My Orders Last 24 Hours: My Active Orders 11/19/18 12:33 Hip Min 2V or 3V Lt [CR] Stat - Assessment/Plan Last 24 Hours: My Active Orders 11/19/18 12:33 Hip Min 2V or 3V Lt [CR] Stat
--- NOTE | 2018-11-19 13:03 | CR ---
HISTORY: Left hip pain. FINDINGS: Two views of the left hip are provided. 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 No findings for fracture or dislocation. Dictated by Bertram Dennis MD @ Nov 19 2018 12:59PM Signed by Dr. Bertram Dennis @ Nov 19 2018 1:00PM
[2018-11-19 13:32] VITALS: BP 153/71
== END 2018-11-19 13:15 | disposition home or self-care (01) ==
LOC: MW.ED 12:15
DX: M54.32 Sciatica, left side (principal); I10 Essential (primary) hypertension; I25.2 Old myocardial infarction; E11.9 Type 2 diabetes mellitus without complications; Z79.82 Long term (current) use of aspirin; Z79.899 Other long term (current) drug therapy; Z95.1 Presence of aortocoronary bypass graft
CPT/HCPCS: 73502; 96372; 99283; J1885; J2360

== ENCOUNTER 2020-12-26 04:19 | Emergency (ER) | payer MEDICARE, BC ==
[2020-12-26] MEDS ORDERED: Sodium Chloride 0.9% 10 ML Syringe FLUSH PRN (04:43)
[2020-12-26] MEDS ORDERED: Sodium Chloride 0.9% 2.5 ML Syringe FLUSH PRN (04:43)
[2020-12-26] MEDS ORDERED: Metoprolol Tartrate 5 MG/5 ML SDV IVPUSH ONE ×2 (04:44→05:18)
--- NOTE | 2020-12-26 04:47 | EDM.PDOC ---
<Gurmeet Stauffer - Last Filed: 12/26/20 06:51> ED HPI GENERAL MEDICAL PROBLEM - General Chief Complaint: Back Pain or Injury Stated Complaint: BACK, NECK, AND SHOULDER PAIN Time Seen by Provider: 12/26/20 04:35 - History of Present Illness INITIAL COMMENTS - FREE TEXT/NARRATIVE: History of present illness: [] The patient reports pain in the posterior shoulder blades and upper posterior thorax for 2 days. It started on the right side and made to the left side and then today it is on both. It is moderately severe and constant. Its not worse with exertion but it is worse with movement. The patient does not recognize any injury. He is not diaphoretic but feels warm. He does not have nausea or change in appetite. He is not short of breath. 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 The patient was a smoker until 1979. Review of systems: As per history of present illness and below otherwise all systems reviewed and negative. Past medical history: As per history of present illness and as reviewed below otherwise noncontributory. Surgical history: As per history of present illness and as reviewed below otherwise noncontributory. Social history: No reported history of drug or alcohol abuse. Family history: As per history of present illness and as reviewed below otherwise noncontributory. Physical exam: Constitutional - well developed, well-nourished and in no acute distress HEENT - normocephalic, no evidence of trauma - external nose and mouth normal - no mass in neck and no JVD - mucosae moist EYES - full EOM, PERRL, no icterus - no evidence of inflammation, injection, or drainage Respiratory - no respiratory distress, equal bilateral expansion, lungs clear to auscultation and no abnormal lung sounds Cardiovascular -peripheral pulses are symmetric and bounding. Regular Rhythm with S1 and S2 appreciated and no murmur, gallop or rub. GI - abdomen soft without distension or organomegaly - normal bowel sounds - no guard or rebound Musculoskeletal no gross deformity of long bones or joints - no tenderness, swelling or edema Neurologic - Alert and oriented times four - CN II-XII grossly intact - motor sensory and coordination symmetrically normal Psychiatric - appropriate mood and affect with normal thought content Hematologic - No petechiae or purpura - mucosa appropriate color and sclera not pale - normal nail bed color and refill Integument - no rash or evidence of trauma - normal turgor Diagnostics: [] Therapeutics: [] Impression: [] Plan: [] Definitive disposition and diagnosis as appropriate pending reevaluation and review of above. Upper Back Pain Score (Numeric/FACES): 8 - Related Data Allergies Allergy/AdvReac Type Severity Reaction Status Date / Time No Known Allergies Allergy Verified 12/26/20 04:30 Home Meds: Home Meds Aspirin 81 mg PO DAILY 06/06/18 [History] Insulin Aspart [NovoLOG] 5 units SQ TID 06/26/18 [History] Insulin Detemir [Levemir Flextouch] 30 units SQ BID 06/26/18 [History] Lisinopril 1 tab PO DAILY 06/26/18 [History] atorvaSTATin [Lipitor] 1 tab PO BEDTIME 06/26/18 [History] carvediloL [Carvedilol] 2 tab PO BID 06/26/18 [History] Cyclobenzaprine [Flexeril] 1 dose PO TID PRN #20 tab 11/19/18 [Rx] Diclofenac Sodium [Voltaren] 50 mg PO TID PRN #30 tab.ec 11/19/18 [Rx] Nitroglycerin [Nitrostat] 0.4 mg SL PRN 11/19/18 [History] Past Medical History HEENT History: Reports: None, Impaired Vision Cardiovascular History: Reports: Bypass, Hypertension, [place] Respiratory History: Reports: None Gastrointestinal History: Reports: None Genitourinary History: Reports: None Musculoskeletal History: Reports: None Neurological History: Reports: TIA Psychiatric History: Reports: None Endocrine/Metabolic History: Reports: Diabetes, Type I Hematologic History: Reports: None Immunologic History: Reports: None Oncologic (Cancer) History: Reports: None Dermatologic History: Reports: None - Infectious Disease History Infectious Disease History: Reports: Chicken Pox, Mumps Other Infectious Disease History: childhood - Past Surgical History Head Surgeries/Procedures: Reports: None HEENT Surgical History: Reports: None 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, Coronary Artery Bypass Respiratory Surgical History: Reports: None GI Surgical History: Reports: Appendectomy Male Surgical History: Reports: None Endocrine Surgical History: Reports: None Neurological Surgical History: Reports: None Musculoskeletal Surgical History: Reports: None Oncologic Surgical History: Reports: None Dermatological Surgical History: Reports: None Social & Family History - Family History Family Medical History: No Pertinent Family History - Tobacco Use Tobacco Use Status *Q: Never Tobacco User Second Hand Smoke Exposure: No - Caffeine Use Caffeine Use: Reports: None - Recreational Drug Use Recreational Drug Use: No ED ROS GENERAL - Review of Systems Review Of Systems: Comprehensive ROS is negative, except as noted in HPI. ED EXAM, GENERAL - Physical Exam Exam: See Below Free Text/Narrative:: My physical exam is in the HPI #1 Interpretation EKG Interpretation Comments: EKG Date 12/26/2020 Time 04 20 Rhythm sinus tachycardia Rate 101 FL interval 186 QT duration 500 [place] -27 QRS right bundle branch block Comparison 06/26/2018-no change Impression no acute injury Course - Vital Signs Text/Narrative:: 05 19 mean pressure was 140 on arrival. 132 resting. He had mean pressure 119 with Lopressor 1 dose second dose ordered. I had like to drop his mean pressure 20%. Or approximately 105 as a mean pressure would be desirable. 06 25 a fire extinguisher technician and 9 conference with went over the patient's diabetes, creatinine, GFR, fact that he is no longer taking Voltaren, and that I was going to hydrate pre and post study and agree unknown amount of contrast that would be safe intravenously to get this patient a rule out dissection study on the CT angio without a significant risk to increase damage to his kidneys. 6:51 AM at 7 AM I signed the patient out to my partner Dr. Amos. CT angio underway. Patient will remain hydrated for hours after that to make sure we protect his kidneys. Departure - Departure Disposition: Home, Self-Care 01 Clinical Impression: Compression fracture of T3 vertebra - Discharge Information Instructions: Thoracic Spine Fracture Referrals: Prabhjot Hobbs MD [Primary Care Provider] - Forms: ED Department Discharge Additional Instructions: The following information is given to patients seen in the emergency department who are being discharged to home. This information is to outline your options for follow-up care. We provide all patients seen in our emergency department with a follow-up referral. The need for follow-up, as well as the timing and circumstances, are variable depending upon the specifics of your emergency department visit. If you don't have a primary care physician on staff, we will provide you with a referral. We always advise you to contact your personal physician following an emergency department visit to inform them of the circumstance of the visit and for follow-up with them and/or the need for any referrals to a consulting specialist. The emergency department will also refer you to a specialist when appropriate. This referral assures that you have the opportunity for follow-up care with a specialist. All of these measure are taken in an effort to provide you with optimal care, which includes your follow-up. Under all circumstances we always encourage you to contact your private physician who remains a resource for coordinating your care. When calling for follow-up care, please make the office aware that this follow-up is from your recent emergency room visit. If for any reason you are refused follow-up, please contact the [facility] Emergency Department at and asked to speak to the emergency department charge nurse. Please follow up with your primary care physician. If you do not have a primary care physician, see below: [facility] [address] [place] [id number] [facility] [address] [place] [address] AYE Mendoza, MSc, FAANS Neurosurgery Location [address] [place] [address] [address] You were seen today for upper back pain. We did a CAT scan that shows you have a age-indeterminate vertebral body fracture in your thoracic area of your spine. We spoke to neurosurgery who will be in [place] next week please call the number above to try to schedule appointment to be seen next week. We also like for you to have MRI before hand. Please try to talk to your primary care physician about getting this ordered. <James Amos - Last Filed: 12/26/20 14:56> Course - Vital Signs Last Recorded V/S: Last Vital Signs Temp 98.8 F 12/26/20 04:27 Pulse 95 12/26/20 08:56 Resp 18 12/26/20 08:56 BP 178/79 H 12/26/20 10:14 Pulse Ox 98 12/26/20 08:56 - Orders/Labs/Meds Orders: Active Orders 24 hr Category Date Time Status Thoracic Spine Comp wo Cont [MR] Stat Exams 12/26/20 09:56 Taken Sodium Chloride 0.9% [Normal Saline] 500 ml Med 12/26/20 05:45 Active IV .BOLUS Sodium Chloride 0.9% [Normal Saline] 500 ml Med 12/26/20 07:15 Active IV .BOLUS Sodium Chloride 0.9% [Saline Flush] Med 12/26/20 04:43 Active 10 ml FLUSH ASDIRECTED PRN Sodium Chloride 0.9% [Saline Flush] Med 12/26/20 04:43 Active 2.5 ml FLUSH ASDIRECTED PRN Saline Lock Insert [OM.PC] Stat Oth 12/26/20 04:43 Ordered Medication Orders Sodium Chloride (Normal Saline) 500 mls @ 250 mls/hr IV .BOLUS EDE Last Infusion: 12/26/20 06:34 Dose: 100 mls/hr Documented by: Infusion: 12/26/20 06:26 Dose: 999 mls/hr Documented by: Admin: 12/26/20 05:59 Dose: 250 mls/hr Documented by: ZOHREH Sodium Chloride (Normal Saline) 500 mls @ 500 mls/hr IV .BOLUS EDE Sodium Chloride (Sodium Chloride 0.9% 10 Ml Syringe) 10 ml FLUSH ASDIRECTED PRN PRN Reason: Keep Vein Open Last Admin: 12/26/20 08:54 Dose: 10 ml Documented by: SHERIDAN Sodium Chloride (Sodium Chloride 0.9% 2.5 Ml Syringe) 2.5 ml FLUSH ASDIRECTED PRN PRN Reason: Keep Vein Open Last Admin: 12/26/20 08:54 Dose: 2.5 ml Documented by: SHERIDAN Labs: Laboratory Tests 12/26/20 12/26/20 12/26/20 Range/Units 04:20 04:20 04:30 WBC 10.99 (4.0-11.0) K/uL RBC 3.94 L (4.50-5.90) M/uL Hgb 12.2 L (13.0-17.0) g/dL Hct 36.2 L (38.0-50.0) % MCV 91.9 (80.0-98.0) fL MCH 31.0 (27.0-32.0) pg MCHC 33.7 (31.0-37.0) g/dL RDW Std Deviation 45.3 (28.0-62.0) fl RDW Coeff of Tracey 14 (11.0-15.0) % Plt Count 250 (150-400) K/uL MPV 11.50 (7.40-12.00) fL Neut % (Auto) 69.4 (48.0-80.0) % Lymph % (Auto) 14.8 L (16.0-40.0) % [place] % (Auto) 15.0 (0.0-15.0) % Eos % (Auto) 0.7 (0.0-7.0) % Baso % (Auto) 0.1 (0.0-1.5) % Neut # (Auto) 7.6 H (1.4-5.7) K/uL Lymph # (Auto) 1.6 (0.6-2.4) K/uL [place] # (Auto) 1.7 H (0.0-0.8) K/uL Eos # (Auto) 0.1 (0.0-0.7) K/uL Baso # (Auto) 0.0 (0.0-0.1) K/uL Nucleated RBC % 0.0 /100WBC Nucleated RBCs # 0 K/uL D-Dimer, Quantitative 0.96 H (0.0-0.50) mg/L FEU Sodium 138 (136-148) mmol/L Potassium 4.3 (3.5-5.1) mmol/L Chloride 104 (98-107) mmol/L Carbon Dioxide 21.7 (21.0-32.0) mmol/L BUN 31 H (7.0-18.0) mg/dL Creatinine 1.4 H (0.8-1.3) mg/dL Est Cr Clr Drug Dosing 37.38 mL/min Estimated GFR (MDRD) 48.4 ml/min Glucose 197 H (74-106) mg/dL Calcium 7.8 L (8.5-10.1) mg/dL Total Bilirubin 0.7 (0.2-1.0) mg/dL AST 24 (15-37) IU/L ALT 25 (14-63) IU/L Alkaline Phosphatase 95 (46-116) U/L Troponin I < 0.050 (0.000-0.056) ng/mL Total Protein 7.0 (6.4-8.2) g/dL Albumin 3.3 L (3.4-5.0) g/dL Globulin 3.7 (2.6-4.0) g/dL Albumin/Globulin Ratio 0.9 (0.9-1.6) Urine Color Urine Appearance Urine pH (5.0-8.0) Ur Specific [place] (1.001-1.035) Urine Protein (NEGATIVE) mg/dL Urine Glucose (UA) (NEGATIVE) mg/dL Urine Ketones (NEGATIVE) mg/dL Urine Occult Blood (NEGATIVE) Urine Nitrite (NEGATIVE) Urine Bilirubin (NEGATIVE) Urine Urobilinogen (<2.0) EU/dL Ur Leukocyte Esterase (NEGATIVE) Urine RBC (0-2/HPF) Urine WBC (0-5/HPF) Ur Epithelial Cells (NONE-FEW) Urine Bacteria (NEGATIVE) 12/26/20 Range/Units 05:00 WBC (4.0-11.0) K/uL RBC (4.50-5.90) M/uL Hgb (13.0-17.0) g/dL Hct (38.0-50.0) % MCV (80.0-98.0) fL MCH (27.0-32.0) pg MCHC (31.0-37.0) g/dL RDW Std Deviation (28.0-62.0) fl RDW Coeff of Tracey (11.0-15.0) % Plt Count (150-400) K/uL MPV (7.40-12.00) fL Neut % (Auto) (48.0-80.0) % Lymph % (Auto) (16.0-40.0) % [place] % (Auto) (0.0-15.0) % Eos % (Auto) (0.0-7.0) % Baso % (Auto) (0.0-1.5) % Neut # (Auto) (1.4-5.7) K/uL Lymph # (Auto) (0.6-2.4) K/uL [place] # (Auto) (0.0-0.8) K/uL Eos # (Auto) (0.0-0.7) K/uL Baso # (Auto) (0.0-0.1) K/uL Nucleated RBC % /100WBC Nucleated RBCs # K/uL D-Dimer, Quantitative (0.0-0.50) mg/L FEU Sodium (136-148) mmol/L Potassium (3.5-5.1) mmol/L Chloride (98-107) mmol/L Carbon Dioxide (21.0-32.0) mmol/L BUN (7.0-18.0) mg/dL Creatinine (0.8-1.3) mg/dL Est Cr Clr Drug Dosing mL/min Estimated GFR (MDRD) ml/min Glucose (74-106) mg/dL Calcium (8.5-10.1) mg/dL Total Bilirubin (0.2-1.0) mg/dL AST (15-37) IU/L ALT (14-63) IU/L Alkaline Phosphatase (46-116) U/L Troponin I (0.000-0.056) ng/mL Total Protein (6.4-8.2) g/dL Albumin (3.4-5.0) g/dL Globulin (2.6-4.0) g/dL Albumin/Globulin Ratio (0.9-1.6) Urine Color YELLOW Urine Appearance CLEAR Urine pH 5.5 (5.0-8.0) Ur Specific [place] 1.025 (1.001-1.035) Urine Protein NEGATIVE (NEGATIVE) mg/dL Urine Glucose (UA) 100 H (NEGATIVE) mg/dL Urine Ketones NEGATIVE (NEGATIVE) mg/dL Urine Occult Blood TRACE-INTACT H (NEGATIVE) Urine Nitrite NEGATIVE (NEGATIVE) Urine Bilirubin NEGATIVE (NEGATIVE) Urine Urobilinogen 0.2 (<2.0) EU/dL Ur Leukocyte Esterase NEGATIVE (NEGATIVE) Urine RBC 0-2 (0-2/HPF) Urine WBC NONE SEEN (0-5/HPF) Ur Epithelial Cells OCCASIONAL (NONE-FEW) Urine Bacteria FEW (NEGATIVE) Meds: Medications Generic Name Dose Route Start Last Admin Trade Name Freq PRN Reason Stop Dose Admin Sodium Chloride 500 mls @ 250 mls/hr 12/26/20 05:45 12/26/20 06:34 Normal Saline IV 100 mls/hr .BOLUS EDE Infusion Sodium Chloride 500 mls @ 500 mls/hr 12/26/20 07:15 Normal Saline IV .BOLUS EDE Sodium Chloride 10 ml 12/26/20 04:43 12/26/20 08:54 Sodium Chloride 0.9% 10 Ml Syringe FLUSH 10 ml ASDIRECTED PRN Administration Keep Vein Open Sodium Chloride 2.5 ml 12/26/20 04:43 12/26/20 08:54 Sodium Chloride 0.9% 2.5 Ml Syringe FLUSH 2.5 ml ASDIRECTED PRN Administration Keep Vein Open Discontinued Medications Generic Name Dose Route Start Last Admin Trade Name Cristhianq PRN Reason Stop Dose Admin Iopamidol 100 ml 12/26/20 07:12 12/26/20 07:13 Iopamidol 755 Mg/Ml 500 Ml Multipack Bottle IVPUSH 12/26/20 07:13 100 ml ONETIME ONE Administration Lisinopril 10 mg 12/26/20 08:04 12/26/20 08:55 Lisinopril 10 Mg Tab PO 12/26/20 08:05 10 mg ONETIME ONE Administration Lisinopril 10 mg 12/26/20 09:55 12/26/20 10:14 Lisinopril 10 Mg Tab PO 12/26/20 09:56 10 mg ONETIME ONE Administration Metoprolol Tartrate 5 mg 12/26/20 04:44 12/26/20 04:50 Metoprolol Tartrate 5 Mg/5 Ml Sdv IVPUSH 12/26/20 04:45 5 mg ONETIME ONE Administration Metoprolol Tartrate 5 mg 12/26/20 05:18 12/26/20 05:58 Metoprolol Tartrate 5 Mg/5 Ml Sdv IVPUSH 12/26/20 05:19 5 mg ONETIME ONE Administration - Re-Assessments/Exams Free Text/Narrative Re-Assessment/Exam: 12/26/20 09:51 Patient was signed to me from previous provider for upper back pain. Patient also had elevated D-dimer they did a CT dissection study that shows a age- indeterminate T3 vertebrae deformity. We spoke to Dr. Lnyn at [facility] and states that she can follow-up as outpatient but they do want MRI before the patient sees her next week. Patient blood pressure is improved as well. Patient was to be admitted per previous attending recommendation however patient would rather go home and states he feels a lot better knowing that is the fracture. Patient will be discharge and follow-up with neurosurgery as outpatient. 12/26/20 14:56 Patient MRI has been completed. Patient will follow up with Dr. Lynn next week. Patient blood pressures been stable and he looks a lot better will be discharged home. Departure - Departure Time of Disposition: 14:56 Condition: Good - Discharge Information *PRESCRIPTION DRUG MONITORING PROGRAM REVIEWED*: Not Applicable *COPY OF PRESCRIPTION DRUG MONITORING REPORT IN PATIENT BETTE: Not Applicable Sepsis Event Note (ED) - Focused Exam Vital Signs: Vital Signs Temp Pulse Pulse Resp BP BP BP 12/26/20 10:14 178/79 H 12/26/20 08:56 95 18 192/91 H 12/26/20 08:55 199/89 H 12/26/20 07:30 96 18 175/91 H 12/26/20 06:24 90 18 174/85 H 12/26/20 05:58 94 192/91 H 12/26/20 05:27 92 16 182/88 H 12/26/20 04:50 96 206/96 H 12/26/20 04:27 98.8 F 98 20 213/110 H 196/112 H Pulse Ox 12/26/20 10:14 12/26/20 08:56 98 12/26/20 08:55 12/26/20 07:30 95 12/26/20 06:24 95 12/26/20 05:58 12/26/20 05:27 95 12/26/20 04:50 12/26/20 04:27 96 - My Orders Last 24 Hours: My Active Orders 12/26/20 07:15 Sodium Chloride 0.9% [Normal Saline] 500 ml IV .BOLUS 12/26/20 09:56 Thoracic Spine Comp wo Cont [MR] Stat - Assessment/Plan Last 24 Hours: My Active Orders 12/26/20 07:15 Sodium Chloride 0.9% [Normal Saline] 500 ml IV .BOLUS 12/26/20 09:56 Thoracic Spine Comp wo Cont [MR] Stat
[2020-12-26 05:24] LABS: BLOOD UREA NITROGEN,BUN 31 mg/dL (7.0-18.0); CARBON DIOXIDE,CO2 21.7 mmol/L (21.0-32.0); CHLORIDE,CL 104 mmol/L (98-107); GLUCOSE RANDOM 197 mg/dL (74-106); POTASSIUM,K 4.3 mmol/L (3.5-5.1); SODIUM,NA 138 mmol/L (136-148)
--- NOTE | 2020-12-26 05:28 | CR ---
INDICATION: Posterior chest pain TECHNIQUE: Portable AP view of the chest COMPARISON: Portable AP chest radiograph 06/26/2018 FINDINGS: The lungs are clear. There is no sizable pleural effusion or pneumothorax. The cardiomediastinal silhouette is normal. Sternotomy wires and mediastinal clips are noted. IMPRESSION: No acute abnormality. Dictated by Tin Redmond MD @ 12/26/2020 5:27:[address] Tin Redmond @ Dec 26 2020 5:27AM
[2020-12-26] MEDS ORDERED: Sodium Chloride 0.9% 500 ML IV SCH ×2 (05:45→07:15)
[2020-12-26] MEDS ORDERED: Iopamidol 755 MG/ML 500 ML Multipack Bottle IVPUSH ONE (07:12)
[2020-12-26] MEDS ORDERED: Lisinopril 10 MG Tab PO ONE ×2 (08:04→09:55)
[2020-12-26 08:57] VITALS: PULSE 95
--- NOTE | 2020-12-26 09:20 | CT ---
INDICATION: Severe hypertension and back pain. TECHNIQUE: CT chest without contrast and CT chest, abdomen and pelvis acquired with 100 cc Isovue 370 IV contrast, dissection protocol. COMPARISON: None. FINDINGS: CHEST: Cardiovascular structures: The unenhanced images demonstrate no evidence of aortic intramural hematoma. The entire aorta is normal in caliber and there is no sign of aortic dissection. Diffuse aortic atherosclerosis. Heart size is normal. Mediastinum and raffy: No mass or adenopathy. Lungs and pleura: Lungs are clear. No pleural effusions. Chest wall and axilla: No mass or adenopathy. Bones: Mild compression deformity of the T3 vertebral body visualized on series 204, image 79. Otherwise unremarkable for age. ABDOMEN AND PELVIS: Liver: Unremarkable. Gallbladder and bile ducts: Unremarkable. Pancreas: Unremarkable. Spleen: Unremarkable. Adrenal glands: Unremarkable. Kidneys: Unremarkable. GI tract: Unremarkable. Vascular structures: Abdominal aortic atherosclerosis without aneurysm or dissection. Atherosclerosis is causing moderate narrowing of the proximal superior mesenteric artery. Mesenteric arteries otherwise patent. Lymph nodes: Unremarkable. Miscellaneous: Unremarkable. No free air or significant free fluid. Pelvic Organs: Marked prostate gland enlargement. Unremarkable urinary bladder. Left inguinal hernia contains a segment of non strangulated, nonobstructed colon. Bones: Unremarkable for age. IMPRESSION: 1. Diffuse aortic atherosclerosis without aneurysm or dissection. 2. Marked prostate gland hypertrophy. 3. Mild compression deformity of the T3 vertebral body is of indeterminate age. Acute or subacute fracture is not definite but possible. 4. No other acute or significant findings in the chest, abdomen or pelvis. Please note that all CT scans at this facility use dose modulation, iterative reconstruction, and/or weight-based dosing when appropriate to reduce radiation dose to as low as reasonably achievable. Dictated by Chris Garcia MD @ 12/26/2020 9:20:[address] Chris Garcia @ Dec 26 2020 9:20AM
[2020-12-26 10:14] VITALS: BP 178/79
--- NOTE | 2020-12-26 11:45 | CT ---
EXAM DATE: 12/26/20 PATIENT'S AGE: 85 Patient: JERSON CAMPBELL Facility: [facility] Site . Site : [id number] Study: CT-Chest/Abd/Pelvis Angio WHOLE AORTA-12/26/2020 7:43:40 AM Ordering Physician: Eh Levi Final Report: INDICATION: Severe hypertension and back pain. TECHNIQUE: CT chest without contrast and CT chest, abdomen and pelvis acquired with 100 cc Isovue 370 IV contrast, dissection protocol. COMPARISON: None. FINDINGS: CHEST: Cardiovascular structures: The unenhanced images demonstrate no evidence of aortic intramural hematoma. The entire aorta is normal in caliber and there is no sign of aortic dissection. Diffuse aortic atherosclerosis. Heart size is normal. Mediastinum and raffy: No mass or adenopathy. Lungs and pleura: Lungs are clear. No pleural effusions. Chest wall and axilla: No mass or adenopathy. Bones: Mild compression deformity of the T3 vertebral body visualized on series 204, image 79. Otherwise unremarkable for age. ABDOMEN AND PELVIS: Liver: Unremarkable. Gallbladder and bile ducts: Unremarkable. Pancreas: Unremarkable. Spleen: Unremarkable. Adrenal glands: Unremarkable. Kidneys: Unremarkable. GI tract: Unremarkable. Vascular structures: Abdominal aortic atherosclerosis without aneurysm or dissection. Atherosclerosis is causing moderate narrowing of the proximal superior mesenteric artery. Mesenteric arteries otherwise patent. Lymph nodes: Unremarkable. Miscellaneous: Unremarkable. No free air or significant free fluid. Pelvic Organs: Marked prostate gland enlargement. Unremarkable urinary bladder. Left inguinal hernia contains a segment of non strangulated, nonobstructed colon. Bones: Unremarkable for age. IMPRESSION: 1. Diffuse aortic atherosclerosis without aneurysm or dissection. 2. Marked prostate gland hypertrophy. 3. Mild compression deformity of the T3 vertebral body is of indeterminate age. Acute or subacute fracture is not definite but possible. 4. No other acute or significant findings in the chest, abdomen or pelvis. Please note that all CT scans at this facility use dose modulation, iterative reconstruction, and/or weight-based dosing when appropriate to reduce radiation dose to as low as reasonably achievable. Dictated by Chris Garcia MD @ 12/26/2020 9:20:26 AM Signed by: Chris Garcia MD @12/26/2020 9:20:26 AM (Electronic Signature) Report Signed by Proxy. DIANAD
--- NOTE | 2020-12-26 15:11 | MR ---
Indication: Mid back pain. T3 fracture and CT earlier on 12/26/2020. Technique: T2, T1, and STIR sagittal as well as gradient echo axial sequences were obtained. No IV contrast. Comparison: CT chest on 12/26/2020 at 0700 hours. Findings: Mildly exaggerated thoracic kyphosis. Moderate chronic anterior wedging of the T3 vertebral body with a sizable Schmorl`s node along its superior endplate. Tiny fracture deformity along the anterosuperior aspect of the T12 vertebral body which may be an active insult. Trace chronic loss of anterior vertebral body height at a few other thoracic levels. No additional evidence for stress reaction, recent fracture or worrisome bone lesion. Multilevel disc degenerative changes with variable degrees of T2 signal loss, mild annular bulging and mild anterior interbody spurring. No disc herniations are identified. The central canal is patent. No intrinsic thoracic cord abnormalities identified. The thoracic neural foramina are patent. The paravertebral soft tissues are grossly negative. Impression: 1. Moderate chronic anterior wedging of the T3 vertebral body. 2. Tiny fracture deformity along the anterosuperior aspect of the T12 vertebral body. This could represent an acute insult. 3. No large or frankly lateralizing disc herniations are identified. No compromise of the thoracic central spinal canal. Normal appearing thoracic cord. Dictated by Stuart Mcnulty MD @ 12/26/2020 3:09:[address] Stuart Mcnulty @ Dec 26 2020 3:09PM
== END 2020-12-26 15:03 | disposition home or self-care (01) ==
LOC: MW.ED 04:19
DX: S22.030A Wedge compression fracture of third thoracic vertebra, initial encounter for closed fracture (principal); I10 Essential (primary) hypertension; E10.9 Type 1 diabetes mellitus without complications; Z79.82 Long term (current) use of aspirin; Z79.899 Other long term (current) drug therapy; X58.XXXA Exposure to other specified factors, initial encounter
CPT/HCPCS: 36415; 71045; 71275; 72146; 74174; 80053; 81001; 84484; 85025; 85379; 93005; 96374; 96375; 99284; A9270; J3490; J7040; Q9967

== ENCOUNTER 2021-12-12 05:20 | Emergency (ER) | payer MEDICARE, BC ==
[2021-12-12] MEDS ORDERED: Benzocaine 20% Topical Spray UD MUCMEM ONE (06:21)
[2021-12-12 06:38] LABS: CORONAVIRUS COVID-19 NAA NEGATIVE (NEGATIVE); INFLUENZA A NAA NEGATIVE (NEGATIVE); INFLUENZA B NAA NEGATIVE (NEGATIVE); RESPIRATORY SYNCYTIAL VIR NAA NEGATIVE (NEGATIVE)
[2021-12-12 06:48] LABS: CARBON DIOXIDE,CO2 22.8 mmol/L (21.0-32.0); POTASSIUM,K 4.8 mmol/L (3.5-5.1)
[2021-12-12 07:46] VITALS: BP 158/73; PULSE 60
== END 2021-12-12 07:46 | disposition home or self-care (01) ==
LOC: MW.ED 05:20
DX: J02.9 Acute pharyngitis, unspecified (principal); I10 Essential (primary) hypertension; I25.2 Old myocardial infarction; E10.9 Type 1 diabetes mellitus without complications; Z79.899 Other long term (current) drug therapy; Z79.82 Long term (current) use of aspirin; Z79.4 Long term (current) use of insulin; Z90.49 Acquired absence of other specified parts of digestive tract; Z20.822 Contact with and (suspected) exposure to COVID-19
CPT/HCPCS: 0241U; 36415; 70360; 80053; 82803; 85025; 87651; 99284; A9270

== ENCOUNTER 2022-04-18 17:14 | Emergency (ER) | payer MEDICARE, BC ==
[2022-04-18 20:08] VITALS: BP 167/69; PULSE 60
== END 2022-04-18 20:56 | disposition home or self-care (01) ==
LOC: MW.ED 17:14
DX: K40.90 Unilateral inguinal hernia, without obstruction or gangrene, not specified as recurrent (principal); I10 Essential (primary) hypertension; I25.2 Old myocardial infarction; E10.9 Type 1 diabetes mellitus without complications; Z79.82 Long term (current) use of aspirin; Z79.4 Long term (current) use of insulin; Z79.899 Other long term (current) drug therapy; Z90.49 Acquired absence of other specified parts of digestive tract
CPT/HCPCS: 76870; 76870-26; 93976; 93976-26; 99284

== ENCOUNTER 2022-05-13 08:06 | Day surgery (SDC) | payer MEDICARE, BC ==
[~2022-05-13 08:06] MED LIST: Acetaminophen 1,000 MG in Premix Bag 1 BAG IV SCH; Albuterol 0.083% 2.5 MG/3 ML Neb Soln NEB PRN; HYDROmorphone 1 MG/ML Syringe IVPUSH PRN; Lactated Ringers 1,000 ML IV SCH; Metoclopramide 10 MG/2 ML SDV IVPUSH PRN; Morphine 2 MG/ML SYRINGE IVPUSH PRN; Naloxone 0.4 MG/ML SDV IVPUSH PRN; Ondansetron 4 MG/2 ML SDV IVPUSH PRN; Pregabalin 75 MG Cap PO SCH; ceFAZolin 2 GM in Premix Bag 1 BAG IV SCH; fentaNYL 50 MCG/ML SDV IVPUSH PRN
[2022-05-13] MEDS ORDERED: Bupivacaine 0.5% 30 ML SDV ONE (09:07)
[2022-05-13] MEDS ORDERED: Famotidine 20 MG/2 ML SDV ONE (09:20)
[2022-05-13] MEDS ORDERED: Ropivacaine 0.5% 5 MG/ML 30 ML SDV ONE ×2 (09:20)
[2022-05-13] MEDS ORDERED: Rocuronium 100 MG/10 ML MDV ONE (09:20)
[2022-05-13] MEDS ORDERED: fentaNYL 100 MCG/2 ML SDV ONE ×2 (09:21→11:05)
[2022-05-13] MEDS ORDERED: Propofol 200 MG/20 ML SDV ONE (09:21)
[2022-05-13] MEDS ORDERED: Water For Injection, Sterile 20 ML ONE (09:25)
[2022-05-13] MEDS ORDERED: Water For Injection, Sterile 40 ML ONE (11:04)
[2022-05-13 14:22] VITALS: BP 180/80; PULSE 59
== END 2022-05-13 14:15 | disposition home or self-care (01) ==
LOC: MW.SDS 08:06
PROVIDERS: ATTEND Surgery
DX: K40.90 Unilateral inguinal hernia, without obstruction or gangrene, not specified as recurrent (principal); D17.6 Benign lipomatous neoplasm of spermatic cord; I10 Essential (primary) hypertension; E11.9 Type 2 diabetes mellitus without complications; I25.10 Atherosclerotic heart disease of native coronary artery without angina pectoris; E78.00 Pure hypercholesterolemia, unspecified; I25.2 Old myocardial infarction; Z98.890 Other specified postprocedural states; Z79.899 Other long term (current) drug therapy; Z79.82 Long term (current) use of aspirin; Z90.49 Acquired absence of other specified parts of digestive tract; Z87.891 Personal history of nicotine dependence; Z86.73 Personal history of transient ischemic attack (TIA), and cerebral infarction without residual deficits
CPT/HCPCS: 49650; 82947; A9270; J2704; J2795; J3010; J3490; J7120; 00840; 64488; 99100; C1781

== ENCOUNTER 2023-06-02 06:40 | Day surgery (SDC) | payer MEDICARE, BC ==
[~2023-06-02 06:40] MED LIST changes: -ceFAZolin 2 GM in Premix Bag 1 BAG IV SCH; +ceFAZolin 2 GM in Sodium Chloride 0.9% 50 ML IV ONE; +droPERidol 5 MG/2 ML SDV IVPUSH PRN
[2023-06-02] MEDS ORDERED: Bupivacaine 0.5% 30 ML SDV ONE (07:17)
[2023-06-02] MEDS ORDERED: Propofol 200 MG/20 ML SDV ONE (07:26)
[2023-06-02] MEDS ORDERED: fentaNYL 100 MCG/2 ML SDV ONE (07:26)
[2023-06-02] MEDS ORDERED: Water For Injection, Sterile 20 ML ONE (07:26)
[2023-06-02] MEDS ORDERED: Bupivacaine 0.25% 30 ML SDV ONE (07:35)
[2023-06-02] MEDS ORDERED: Bupivacaine 0.5%/EPINEPHrine 1:200,000 30 ML SDV ONE (07:35)
[2023-06-02] MEDS ORDERED: ceFAZolin 2 GM Vial ONE (07:57)
[2023-06-02] MEDS ORDERED: Magnesium Sulfate (4.06 MEQ/ML) 5 GM/10 ML SDV ONE (08:04)
[2023-06-02] MEDS ORDERED: Dexamethasone 4 MG/ML 5 ML MDV ONE (08:15)
[2023-06-02] MEDS ORDERED: Ondansetron 4 MG/2 ML SDV ONE (08:15)
[2023-06-02] MEDS ORDERED: Ropivacaine 0.5% 5 MG/ML 30 ML SDV ONE (08:33)
[2023-06-02 12:02] VITALS: BP 167/77; PULSE 65
== END 2023-06-02 11:25 | disposition home or self-care (01) ==
LOC: MW.SDS 06:40
PROVIDERS: ATTEND Surgery
DX: K40.90 Unilateral inguinal hernia, without obstruction or gangrene, not specified as recurrent (principal); D17.6 Benign lipomatous neoplasm of spermatic cord; K43.9 Ventral hernia without obstruction or gangrene; I10 Essential (primary) hypertension; E10.9 Type 1 diabetes mellitus without complications; I25.10 Atherosclerotic heart disease of native coronary artery without angina pectoris; Z87.891 Personal history of nicotine dependence; Z79.82 Long term (current) use of aspirin; Z79.899 Other long term (current) drug therapy
CPT/HCPCS: 49505; 64486; 64488; A9270; J0665; J0690; J1100; J2405; J2704; J2795; J3010; J3475; J7120; J3490